=== PATIENT | female | born 1965 | race Caucasian/White ===

== ENCOUNTER 2017-12-29 13:46 | Emergency (ER) | payer OTHER ==
--- NOTE | 2017-12-29 13:59 | PDOC ---
History of Present Illness - General Chief Complaint: Pain Stated Complaint: RIGHT RIB PAIN Time Seen by Provider: 12/29/17 13:59 History Source: Patient Exam Limitations: No Limitations - History of Present Illness Initial Comments: 52 yo F no significant PMH presents with L lower rib cage/upper abdominal pain for past 3 days. She states that the pain comes in spasms. It occurs with movement of her torso, but also occurs in the absence of movement. She does a lot of heavy lifting, but nothing out of the ordinary. No change in symptoms with movement of her arms. Denies dysuria, SOB. No recent illness, fever. No recent travel. She is on an [id number] menopause supplement. Past History - Past Medical History Allergies/Adverse Reactions: Allergies Allergy/AdvReac Type Severity Reaction Status Date / Time codeine AdvReac Intermediate Nausea Verified 12/29/17 13:48 Home Medications: Ambulatory Orders Ibuprofen [Motrin -] 600 mg PO TID PRN #21 tablet 12/29/17 Ondansetron [Zofran Odt -] 4 mg SL TID PRN #21 od.tablet 12/29/17 traMADol HCL [Ultram -] 50 mg PO Q6H PRN #12 tablet MDD 4 tabs 12/29/17 Review of Systems - Review of Systems Able to Perform ROS?: Yes Comments:: GENERAL/CONSTITUTIONAL: No fever or chills. No weakness. HEAD, EYES, EARS, NOSE AND THROAT: No change in vision. No ear pain or discharge. No sore throat. CARDIOVASCULAR: No shortness of breath. +L lower rib margin pain. RESPIRATORY: No cough, wheezing, or hemoptysis. GASTROINTESTINAL: No nausea, vomiting, diarrhea or constipation. GENITOURINARY: No dysuria, frequency, or change in urination. MUSCULOSKELETAL: No joint or muscle swelling or pain. No neck or back pain. SKIN: No rash NEUROLOGIC: No headache, vertigo, loss of consciousness, or change in strength/ sensation. ENDOCRINE: No increased thirst. No abnormal weight change. HEMATOLOGIC/LYMPHATIC: No anemia, easy bleeding, or history of blood clots. ALLERGIC/IMMUNOLOGIC: No hives or skin allergy. *Physical Exam - Physical Exam Comments: GENERAL: Awake, alert, and fully oriented, in no acute distress. Intermittently with spasms of pain that cause her to bend forward. HEAD: No signs of trauma EYES: PERRLA, EOMI, sclera anicteric, conjunctiva clear ENT: Auricles normal inspection, hearing grossly normal, nares patent, oropharynx clear without exudates. Moist mucosa NECK: Normal ROM, supple, no lymphadenopathy, JVD, or masses LUNGS: Breath sounds equal, clear to auscultation bilaterally. No wheezes, and no crackles HEART: Regular rate and rhythm, normal S1 and S2, no murmurs, rubs or gallops ABDOMEN: Soft, nontender, normoactive bowel sounds. No guarding, no rebound. No masses EXTREMITIES: Normal range of motion, no edema. No clubbing or cyanosis. No cords, erythema, or tenderness. Pain elicited with movement of the L hip joint. NEUROLOGICAL: Cranial nerves II through XII grossly intact. Normal speech, normal gait SKIN: Warm, Dry, normal turgor, no rashes or lesions noted. ED Treatment Course - LABORATORY CBC & Chemistry Diagram: 12/29/17 14:30 12/29/17 14:30 Medical Decision Making - Medical Decision Making 12/29/17 14:31 Patient presents with spasms of pain to L side, at times they seem to be related to position and movement of torso, but at other times, she has them unprovoked. No urinary symptoms, no GI symptoms, no cp, no SOB. She has history of stomach problems, but this does not appear to be prompted by food. She has tenderness to the LUQ, no CVAT. Etiology unclear, but patient is flying out of the country tomorrow and needs to know that it is alright to fly. Will obtain CT to further evaluate. 12/29/17 17:08 Results d/w patient- she had an unusual presentation of kidney stone. Will treat with NSAIDs. Will give tramadol to use prn severe pain, as she is traveling out of the country for the next 5 days. There is no hydro, so at this point, it would be ok for her to take her trip. F/u with urology upon her return. *DC/Admit/Observation/Transfer Diagnosis at time of Disposition: Kidney stone - Discharge Dispostion Disposition: HOME Condition at time of disposition: Stable Decision to Admit order: No - Prescriptions Prescriptions: Ibuprofen [Motrin -] 600 mg PO TID PRN #21 tablet PRN Reason: Pain Ondansetron [Zofran Odt -] 4 mg SL TID PRN #21 od.tablet PRN Reason: Nausea And/Or Vomiting traMADol HCL [Ultram -] 50 mg PO Q6H PRN #12 tablet MDD 4 tabs PRN Reason: Severe Pain - Referrals Referrals: Maxwell Stout MD [Staff Physician] - - Patient Instructions Printed Discharge Instructions: DI for Kidney Stones Additional Instructions: Take motrin (or aleve/naproxen) as needed for pain. Take on a full stomach. If the motrin is not sufficient, take one tab of tramadol (may cause drowsiness , nausea). If you become nauseous, take zofran as needed- dissolve under the tongue. - Post Discharge Activity
[2017-12-29 14:01] VITALS: BMI 23.8
[2017-12-29 15:19] LABS: BASO % 0.3 % (0-2.0); EOS % 2.6 % (0-4.5); HEMOGLOBIN 13.4 GM/dl (10.7-15.3); LYMPH % 22.4 % (8-40); MCH 28.4 pg (25.7-33.7); MCHC 32.8 g/dl (32.0-36.0); MEAN CELL VOLUME 86.7 fl (80-96); MEAN PLT VOLUME 9.8 fl (7.5-11.1); NEUT % 68.7 % (42.8-82.8); PLATELET COUNT 236 K/MM3 (134-434); RBC 4.73 M/mm3 (3.60-5.2); RDW 12.6 % (11.6-15.6)
[2017-12-29 15:20] LABS: ALBUMIN 4.1 g/dl (3.5-5.0); ALK PHOS 52 U/L (32-92); ANION GAP 6 (8-16); BILIRUBIN,TOTAL 0.5 mg/dl (0.2-1.0); BLOOD UREA NITROGEN 16 mg/dl (7-18); CALCIUM 9.3 mg/dl (8.4-10.2); CHLORIDE 102 mmol/L (98-107); CO2 28 mmol/L (22-28); CREATININE 0.7 mg/dl (0.6-1.3); GLUCOSE,RANDOM 91 mg/dl (74-106); POTASSIUM 3.8 mmol/L (3.5-5.1); SGOT/AST 25 U/L (10-42); SGPT/ALT 29 U/L (10-40); SODIUM 136 mmol/L (136-145); TOT PROT 6.9 g/dl (6.4-8.3)
[2017-12-29 15:28] LABS: LIPASE 93 U/L (73-393)
[2017-12-29] MEDS ORDERED: KETOROLAC TROMETHAMINE 30 MG/1 ML VIAL ONE (17:07)
[2017-12-29] MEDS ORDERED: KETOROLAC TROMETHAMINE 30 MG/1 ML VIAL IVPUSH ONE (17:13)
[2017-12-29 17:23] VITALS: BP 111/69; PULSE 74; TEMP 98.6
== END 2017-12-29 17:26 | disposition home or self-care (01) ==
LOC: FER 13:46
PROC: 3E0333Z Introduction of Anti-inflammatory into Peripheral Vein, Percutaneous Approach (ICD-10-PCS; principal; 2017-12-29)
DX: N20.0 Calculus of kidney (principal)
CPT/HCPCS: 36415; 74177-TC; 80053; 83690; 85025; 85379; 99282-25

== ENCOUNTER 2020-01-08 07:13 | Day surgery (SDC) | payer OTHER ==
[2020-01-06 12:40] VITALS: BMI 23.6
[2020-01-08] MEDS ORDERED: LIDOCAINE HCL/PF 2% SDV 5ML VIAL ONE (07:30)
[2020-01-08] MEDS ORDERED: PROPOFOL 20 ML ONE ×2 (07:30)
[2020-01-08 08:27] VITALS: TEMP 98.2
[2020-01-08 08:58] VITALS: BP 102/66; PULSE 62
--- NOTE | 2020-01-12 16:11 | PATH ---
Surgical Pathology Report Patient Name: GWENDOLYN ROMO [facility]. Rec. #: [id number] /Age/Gender: 1965 (Age: 54) / F Account: [id number] Location: [facility] Taken: 01/08/2020 Received: 01/08/2020 Reported: 01/12/2020 Physicians: Ruddy Corbin M.D. Specimen(s) Received A: ANTRUM INTERIOR B: GREATER CURVATURE ANTRUM C: POSTERIOR ANTRUM D: ANTRUM LESSER CURVATURE E: BODY ANTERIOR F: BODY GREATER CURVATURE G: BODY POSTERIOR H: BODY LESSER CURVATURE I: FUNDUS INTERIOR J: FUNDUS GREATER CURVATURE K: FUNDUS POSTERIOR L: FUNDUS LESSER CURVATURE M: DISTAL ESOPHAGUS Clinical History Intestinal metaplasia Postoperative diagnosis: Gastritis, GERD Final Diagnosis A. ANTRUM INTERIOR, BIOPSY: GASTRIC MUCOSA WITH CHRONIC GASTRITIS AND INTESTINAL METAPLASIA. IMMUNOSTAIN FOR H. PYLORI IS NEGATIVE. NEGATIVE FOR DYSPLASIA. B. GREATER CURVATURE ANTRUM, BIOPSY: GASTRIC MUCOSA WITH CHRONIC GASTRITIS AND INTESTINAL METAPLASIA. IMMUNOSTAIN FOR H. PYLORI IS NEGATIVE. NEGATIVE FOR DYSPLASIA. C. POSTERIOR ANTRUM, BIOPSY: GASTRIC MUCOSA WITH CHRONIC GASTRITIS. IMMUNOSTAIN FOR H. PYLORI IS NEGATIVE. NEGATIVE FOR INTESTINAL METAPLASIA. D. ANTRUM LESSER CURVATURE, BIOPSY: GASTRIC MUCOSA WITH CHRONIC GASTRITIS. IMMUNOSTAIN FOR H. PYLORI IS NEGATIVE. NEGATIVE FOR INTESTINAL METAPLASIA. E. GASTRIC BODY ANTERIOR, BIOPSY: GASTRIC MUCOSA WITH CHRONIC GASTRITIS. IMMUNOSTAIN FOR H. PYLORI IS NEGATIVE. NEGATIVE FOR INTESTINAL METAPLASIA. F. BODY GREATER CURVATURE, BIOPSY: GASTRIC MUCOSA WITH CHRONIC GASTRITIS. IMMUNOSTAIN FOR H. PYLORI IS NEGATIVE. NEGATIVE FOR INTESTINAL METAPLASIA. G. BODY POSTERIOR, BIOPSY: GASTRIC MUCOSA WITH CHRONIC GASTRITIS. IMMUNOSTAIN FOR H. PYLORI IS NEGATIVE. NEGATIVE FOR INTESTINAL METAPLASIA. H. BODY LESSER CURVATURE, BIOPSY: GASTRIC MUCOSA WITH CHRONIC GASTRITIS. IMMUNOSTAIN FOR H. PYLORI IS NEGATIVE. NEGATIVE FOR INTESTINAL METAPLASIA. I. FUNDUS INTERIOR, BIOPSY: SCANTY GASTRIC MUCOSA. IMMUNOSTAIN FOR H. PYLORI IS NEGATIVE. J. FUNDUS GREATER CURVATURE, BIOPSY: GASTRIC MUCOSA WITH CHRONIC GASTRITIS. IMMUNOSTAIN FOR H. PYLORI IS NEGATIVE. NEGATIVE FOR INTESTINAL METAPLASIA. K. FUNDUS POSTERIOR, BIOPSY: GASTRIC MUCOSA WITH CHRONIC GASTRITIS. IMMUNOSTAIN FOR H. PYLORI IS NEGATIVE. NEGATIVE FOR INTESTINAL METAPLASIA. L. FUNDUS LESSER CURVATURE, BIOPSY: GASTRIC MUCOSA WITH CHRONIC GASTRITIS. IMMUNOSTAIN FOR H. PYLORI IS NEGATIVE. NEGATIVE FOR INTESTINAL METAPLASIA. M. DISTAL ESOPHAGUS, BIOPSY: SQUAMOUS MUCOSA WITH REFLUX ESOPHAGITIS. NEGATIVE FOR INTESTINAL METAPLASIA. Electronically Signed Marlon Gibson M.D. Gross Description A. Received in formalin, labeled "biopsy antrum interior" is a nicole, irregular portion of soft tissue measuring 0.4 cm. in greatest dimension. The specimen is submitted in toto in one cassette. B. Received in formalin, labeled "biopsy greater curvature antrum" is a nicole, irregular portion of soft tissue measuring 0.4 cm. in greatest dimension. The specimen is submitted in toto in one cassette. C. Received in formalin, labeled "biopsy posterior antrum" is a nicole, irregular portion of soft tissue measuring 0.4 cm. in greatest dimension. The specimen is submitted in toto in one cassette. D. Received in formalin, labeled "biopsy antrum lesser curvature" is a nicole, irregular portion of soft tissue measuring 0.3 cm. in greatest dimension. The specimen is submitted in toto in one cassette. E. Received in formalin, labeled "biopsy gastric body anterior" is a nicole, irregular portion of soft tissue measuring 0.5 cm. in greatest dimension. The specimen is submitted in toto in one cassette. F. Received in formalin, labeled "biopsy body greater curvature" is a nicole, irregular portion of soft tissue measuring 0.6 cm. in greatest dimension. The specimen is submitted in toto in one cassette. G. Received in formalin, labeled "biopsy body posterior" is a nicole, irregular portion of soft tissue measuring 0.3 cm. in greatest dimension. The specimen is submitted in toto in one cassette. H. Received in formalin, labeled "biopsy body lesser curvature" are 2 nicole, irregular portions of soft tissue measuring 0.2 and 0.3 cm. in greatest dimension. The specimens are submitted in toto in one cassette. I. Received in formalin, labeled "biopsy fundus interior" is a nicole, irregular portion of soft tissue measuring 0.5 cm. in greatest dimension. The specimen is submitted in toto in one cassette. J. Received in formalin, labeled "biopsy fundus greater curvature" is a nicole, irregular portion of soft tissue measuring 0.3 cm. in greatest dimension. The specimen is submitted in toto in one cassette. K. Received in formalin, labeled "biopsy fundus posterior" is a nicole, irregular portion of soft tissue measuring 0.3 cm. in greatest dimension. The specimen is submitted in toto in one cassette. L. Received in formalin, labeled "biopsy fundus lesser curvature" is a nicole, irregular portion of soft tissue measuring 0.5 cm. in greatest dimension. The specimen is submitted in toto in one cassette. M. Received in formalin, labeled "biopsy distal esophagus" are 3 nicole, irregular portions of soft tissue ranging from 0.1-0.4 cm. in greatest dimension. The specimens are submitted in toto in one cassette. 01/11/2020 [facility]01/11/2020
== END 2020-01-08 08:59 | disposition home or self-care (01) ==
LOC: FASU-ENDO 07:13
PROVIDERS: ATTEND Internal Medicine Gastroenterology
PROC: 0DB68ZX Excision of Stomach, Via Natural or Artificial Opening Endoscopic, Diagnostic (ICD-10-PCS; 2020-01-08)
PROC: 0DB38ZX Excision of Lower Esophagus, Via Natural or Artificial Opening Endoscopic, Diagnostic (ICD-10-PCS; principal; 2020-01-08 07:56)
DX: K29.50 Unspecified chronic gastritis without bleeding (principal); K31.9 Disease of stomach and duodenum, unspecified; K21.0 Gastro-esophageal reflux disease with esophagitis; K21.9 Gastro-esophageal reflux disease without esophagitis
CPT/HCPCS: 88305-TC; 88342-TC